=== PATIENT | male | born 1945 | race Caucasian/White ===

== ENCOUNTER 2018-11-11 19:04 | Inpatient (IN) ==
[2018-11-11] MEDS ORDERED: ACETAMINOPHEN 325 MG TAB PO PRN (21:59)
[2018-11-11] MEDS ORDERED: POLYETHYLENE (MIRALAX) 17 GM PACK PO PRN (21:59)
[2018-11-11] MEDS ORDERED: NITROGLYCERIN SL 0.4 MG/TAB TAB SL PRN (21:59)
[2018-11-11] MEDS ORDERED: cloNIDine HCL 0.1 MG TAB PO PRN (21:59)
[2018-11-11] MEDS ORDERED: ONDANSETRON INJ 2 MG/ML 2 ML VIAL IV PRN (21:59)
[2018-11-11] MEDS ORDERED: PHARMACIST DISCHARGE MED REC CONSULT PRN (21:59)
[2018-11-11] MEDS ORDERED: ASPIRIN 81 MG CHEW PO STA (22:46)
[2018-11-11] MEDS ORDERED: NON-FORMULARY MEDICATION (Hydrocodone-Acetaminophen 1 TAB) PO PRN (22:52)
[2018-11-11] MEDS ORDERED: TRAZODONE HCL 50 MG TAB PO ONE (23:30)
[2018-11-11 23:53] LABS: INR 2.2 (0.9-1.1); Prothrombin Time 21.7 Seconds (9.0-12.0)
[2018-11-11] MEDS: METOPROLOL TARTRATE 25 MG TAB PO SCH (23:53)
[2018-11-11] MEDS: PANTOprazole 40 MG TAB PO SCH (23:56)
[2018-11-12] MEDS ORDERED: WARFARIN SOD 5 MG TAB PO ONE (00:30)
--- NOTE | 2018-11-12 01:50 | History and Physical Report ---
DATE OF ADMISSION: 11/11/2018 CHIEF COMPLAINT: Stroke-like symptoms. HISTORY OF PRESENT ILLNESS: This is a 73-year-old male with past medical history significant for CAD status post stent, status post mitral valve replacement mechanical in 1992, on Coumadin, history of hypertension, hyperlipidemia, BPH, GERD, history of arrhythmia, status post ablation in August of this year at [facility], follows with Dr. Slater also history of migraines in the past, used to be on aspirin twice daily, but it was stopped when he was placed on amiodarone recently the amiodarone interacted with his Coumadin, and at that time, aspirin was stopped and he is not taking aspirin anymore and currently amiodarone is also stopped. He is on metoprolol. He lives with his . Yesterday, again he was placed on heart monitor by his information security architect because arrhythmia came back and he gets symptomatic, he feels his heart skipping and palpitations.Today he was walking in the [place] farm, he walked about 1000 feet when he suddenly felt he could not see in the left eye and was walking towards the left side and then he fell down. He thinks he immediately got up, it was around 1:30 p.m. today. He thinks he immediately got up, but he does not know surely how long was on the ground. When he woke up, his vision was back to normal, but he was having some staggering gait and his car was about 100 yards away and he got into car and slowly drove to his house and went to [facility], where stroke alert was called and a CT of the head and CTA of the head and neck were unremarkable. At that time, his exam was benign and [facility] Neurology advised for MRI of the brain, but because of his mechanical mitral valve, MRI was not done and he wanted to come to [facility] because he follows with [facility] neurology and was transferred here. Currently, the patient is resting comfortably. Blood pressure is running high. He says his blood pressure usually , runs on the lower side at home. There are no blurred visions currently. Speech is clear, alert and oriented. He was able to give his full history. He has some mild headache in the occipital region,he attributes it to his nerves. Somewhat hard of hearing. No earaches. He always has chronic runny nose. No sore throat, no dysphagia. Appetite is okay. He is feeling hungry. No cough. No recent fever, chills. No chest pain, no shortness of breath, no nausea, no vomiting, no abdominal pain. He sleeps okay. No night sweats. No recent weight gain/weight loss. Otherwise, he ambulates okay without any issues. No diarrhea, no constipation, no blood in the stools, no black stools. Normal bladder movements. No hematuria or burning micturition, no swelling in the legs, no rash. ALLERGIES: PENICILLINS, ZOCOR. PAST MEDICAL HISTORY: As mentioned above. PAST SURGICAL HISTORY: Cardiac catheterization and stent placement, mitral valve replacement in 1992, cardiac ablation procedure in August of 2018, cataract surgeries, tonsillectomy when he was 29 years old. MEDICATIONS: The patient is on multivitamin daily, vitamin D 1000 international units 2 times daily, calcium 250 mg daily, magnesium 200 mg daily, fish oil 1 capsule daily, probiotic 1 capsule daily, folic acid 800 mcg p.o. daily, Coenzyme Q10 100 mg daily, melatonin 3 mg p.o. at bedtime p.r.n., Tums as needed, Restasis 0.5% 2 drops daily, latanoprost 0.005% one drop each eye, warfarin 5 mg daily, metoprolol 25 mg p.o. b.i.d., atorvastatin 20 mg daily, Flomax 0.4 mg daily, finasteride 5 mg daily, esomeprazole 20 mg b.i.d., sucralfate 1 gram daily, trazodone 75 mg p.o. at bedtime, MiraLax as needed, ranitidine 150 mg daily, hydrocodone 5/325 p.r.n., azithromycin 250 mg prior to dental procedures, valacyclovir 1 g p.r.n. FAMILY HISTORY: Mother and father had heart disorders, hypertension and diabetes in the family. SOCIAL HISTORY: Quit smoking in 1992. No alcohol. Lives with his . REVIEW OF SYMPTOMS: As per HPI. Rest of review of systems is negative. PHYSICAL EXAMINATION: GENERAL: The patient is alert and oriented, not in acute distress. VITAL SIGNS: Currently not available. Blood pressure is running high in the 200s. HEENT: Head is atraumatic. Eyes: Pupils equal, round, and reactive to light. No icterus. No pallor. Extraocular muscles intact. NECK: No JVD, no neck masses, no carotid bruits. CARDIOVASCULAR: S1, S2 heard, regular rate and rhythm. Mechanical murmur heard in mitral area. RESPIRATORY SYSTEM: Normal AP diameter. No accessory muscle use. No wheezing, no crackles. ABDOMEN: Soft, bowel sounds present, nontender. No distention. CENTRAL NERVOUS SYSTEM: Cranial nerves II-XII grossly intact. Power 5/5 in all extremities. Sensations intact, position sense intact. No pronator drift. Coordination of movements normal. Kyqnxn-vo-yqej test normal. Lgoh-sa-ofgl test normal. Babinski is negative. Speech is clear. EXTREMITIES: No edema, no erythema. LABORATORY DATA: Labs done at [facility] shows BUN 13.7, creatinine 0.9, calcium 8.4, total bilirubin 0.7. Sodium 142, potassium 3.8, chloride 107, bicarbonate 26, glucose 93, AST 12, ALT 18, alkaline phosphatase 58. Troponin I less than 0.015. PT 32.2, INR 2.8, WBC 4.5, hemoglobin 14.4, hematocrit 42.3, platelets 139. Urinalysis negative. CT head, no CT evidence of acute intracranial abnormality. 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 Mild generalized volume loss, mild left frontal sinusitis. Chest x-ray shows hyperexpanded lungs without evidence of acute cardiopulmonary disease. EKG shows sinus rhythm with rate of 69, right bundle-branch block, no acute ST changes seen. ASSESSMENT AND PLAN: This is a 73-year-old male who presents with stroke-like symptoms. 1. Stroke-like symptoms, possible transient ischemic attack, transient left vision loss and balance issues. Currently, exam is benign. He was at [facility]. CT of the head and CTA of the head and neck were unremarkable. [facility] Neurology recommended MRI of the head, but currently the patient cannot get MRI because of his mechanical mitral valve. The patient was transferred here for follow up with his neurologist. It was discussed with the neurologist on-call and recommended an echo and aspirin. We will also repeat CT scan of the head in a.m.Neuro checks, Speech evaluation, pt/ot as per stroke protocol. The patient currently seems to be stable. We will closely monitor in the med/surg tele. 2. History of cardiac arrhythmia, do not know exactly kind of arrythmia. He had a cardiac ablation in August of this year at [facility]. He is following with Dr. Slater, information security architect and he was again placed on heart monitor yesterday by his cardiology because he was still having the arrhythmia. He needs follow up with his information security architect.Will monitor tele. 3. Mechanical mitral valve, on Coumadin. His INR is 2.8, the labs done in [place]. We will follow his PT/INR in the a.m. Continue his home Coumadin of 5 mg. Goal is to keep INR 2.5-3.5. 4. History of hypertension, on Lopressor. We will monitor his blood pressure. Currently, blood pressure is running high. We will also place him on clonidine p.r.n. and monitor his blood pressure closely. 5. Hyperlipidemia. Continue statin. Follow fasting lipid profile. 6. BPH. We will continue home meds Flomax and finasteride. 6. Gastroesophageal reflux disease, on Prilosec and sucralfate, and Zantac. 7. 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 We will follow the repeat CAT scan of the head in tomorrow. He has also followed with neurologist for it in the past. 8. History of migraines. The patient says he has some vision issues in and he saw neurologist in 1998 thought to be from his migraines and was prescribed aspirin twice daily, but that was stopped when he was placed on amiodarone recently for his arrhythmia because his Coumadin levels were fluctuating and currently he is not on amiodarone. We will restart on aspirin as per neurology. 9. Deep venous thrombosis prophylaxis, on Coumadin. INR therapeutic. DISPOSITION: Admit to med/surg tele. PT and OT prior to discharge. Social Service to help with discharge planning. Level 1 full code. MTDD
[2018-11-12 07:28] LABS: Basophils # (auto) 0.02 K/uL (0-0.2); Basophils % (auto) 0.4 %; Eosinophils # (auto) 0.27 K/uL (0-0.5); Eosinophils % (auto) 5.8 %; Hematocrit (blood only) 46.5 % (42-52); Immature Granulocytes # (auto) 0.01 K/uL (0.00-0.02); Immature Granulocytes % (auto) 0.2 %; Lymphocytes # (auto) 1.04 K/uL (1.2-3.4); Lymphocytes % (auto) 22.3 %; Mean Corpuscular Hemoglobin 32.9 pg (25-34); Mean Corpuscular Hgb Conc 34.4 g/dL (32-36); Mean Corpuscular Volume 95.5 fL (80-100); Mean Platelet Volume 11.2 fL (7.4-10.4); Monocytes # (auto) 0.68 K/uL (0.11-0.59); Monocytes % (auto) 14.6 %; Neutrophils # (auto) 2.65 K/uL (1.4-6.5); Neutrophils % (auto) 56.7 %; Platelet Count 137 K/uL (130-400); RDW Coefficient of Variation 13.3 % (11.5-14.5); RDW Standard Deviation 46.1 fL (36.4-46.3); Red Blood Count 4.87 M/uL (4.7-6.1); White Blood Count 4.67 K/uL (4.8-10.8)
[2018-11-12 07:39] LABS: INR 2.3 (0.9-1.1)
[2018-11-12] MEDS: PANTOprazole 40 MG TAB PO SCH (07:55)
[2018-11-12 07:58] LABS: BUN Creatinine Ratio 16.7 (10-20); Calcium 8.9 mg/dl (8.5-10.1); Creatinine Clr Calc Pharmacy 79.4 ml/min; Est GFR (African American) 101.9; Est GFR (Non-African American) 87.9; Potassium 3.5 mmol/L (3.5-5.1)
[2018-11-12 08:04] LABS: Estimated Average Glucose 108 mg/dl; Hemoglobin A1C 5.4 % (4.5-5.6)
[2018-11-12 08:21] VITALS: O2SAT 98
[2018-11-12] MEDS: METOPROLOL TARTRATE 25 MG TAB PO SCH (08:31)
[2018-11-12] MEDS ORDERED: CHOLECALCIFEROL 1,000 UNITS TAB PO SCH (09:00)
[2018-11-12] MEDS ORDERED: FOLIC ACID 400 MCG TAB PO SCH (09:00)
[2018-11-12] MEDS ORDERED: LACTOBACILLUS ACIDOPHILUS (FLORANEX) TAB PO SCH (09:00)
[2018-11-12] MEDS ORDERED: CEROVITE ADV FORMULA TAB PO SCH (09:00)
[2018-11-12] MEDS ORDERED: MAGNESIUM OXIDE 400 MG TAB PO SCH (09:00)
[2018-11-12] MEDS ORDERED: SUCRALFATE 1 GM TAB PO SCH (09:00)
[2018-11-12] MEDS ORDERED: ASPIRIN 81 MG ECTAB PO SCH (09:00)
[2018-11-12] MEDS ORDERED: FINASTERIDE 5 MG TAB PO SCH ×2 (09:00→21:00)
[2018-11-12] MEDS ORDERED: ATORVASTATIN 20 MG TAB PO SCH ×2 (09:00→21:00)
[2018-11-12] MEDS ORDERED: POLYETHYLENE (MIRALAX) 17 GM PACK PO PRN (09:00)
[2018-11-12] MEDS ORDERED: TAMSULOSIN HCL 0.4 MG CAP PO SCH ×2 (09:00→21:00)
--- NOTE | 2018-11-12 10:10 | Hospitalist Progress Note ---
Date of Service November 12, 2018 Assessment & Plan (1) Stroke-like symptoms: Admitted with sudden loss of vision in the left eye which became subsequently Did have nonspecific strokelike symptoms involving gait abnormality Symptoms resolved Initial CT of the head did not show any acute findings CTA of the head and neck noted to be unremarkable Echo of the heart-prosthetic mitral valve with no significant stenosis, EF 50 to 55%, grade 1 diastolic dysfunction Baby aspirin has been added to his other medications Repeat CT of the head is pending Await neurology evaluation Likely discharge this afternoon Present on Admission?: Yes (2) History of heart artery stent: History of CAD status post stent-details of which is not known Not having any acute cardiac symptoms EKG remains in sinus rhythm, with right bundle branch block (3) History of radiofrequency ablation procedure for cardiac arrhythmia: History of cardiac arrhythmia status post radiofrequency ablation Has been having palpitations recently Finishing 2-day Holter monitoring His block placer with Dr. sommer in [place] Was advised to keep the appointment with him (4) S/P MVR (mitral valve replacement): No acute findings on echo Continue Coumadin (5) Hypertension: Controlled now (6) Hygroma: Has bilateral's hygroma involving the cerebrum DVT prophylaxis On Coumadin CODE STATUS Full Subjective 11/12 The patient was seen and examined in medical telemetry unit He has multiple significant past medical history including CAD status post stent, ablation, MVR on Coumadin was admitted with sudden monocular visual loss with nonspecific strokelike symptoms He denies any more symptoms suggestive of stroke and/or TIA He denies any other symptoms Review of Systems Review of Systems: All systems reviewed and are unremarkable except as noted below Cardiovascular: no chest pain Neurologic: no paralysis, no tingling, no numbness, no paresthesia, no lack of coordination and no abnormal movements Physical Exam Physical Exam: Lying in bed comfortably Constitutional: well developed and well nourished; no acute distress and not ill appearing Eyes: PERRL, conjunctivae normal, anicteric sclerae ENMT: external ear and nose normal, oropharynx normal Neck: trachea midline, no thyromegaly Respiratory: normal respiratory effort Auscultation: lungs clear to auscultation bilaterally Cardiovascular: Rate/Rhythm: regular rate and regular rhythm Heart Sounds: + click and + murmur (2/6 ejection systolic murmur over precordium) Gastrointestinal (Abdomen): Inspection/Auscultation: abdomen normal to inspection and normal bowel sounds Musculoskeletal: No acute arthritis in any of the joints Neurologic: moves all extremities; no focal motor deficits Denies any symptoms suggestive of TIA and/or stroke. Results & Data Vital Signs (Past 12 Hours) Vital Signs Temp Pulse Pulse Resp BP Pulse Ox 11/12/18 08:19 36.3 C L 61 18 165/75 H 98 11/12/18 07:39 56 L 11/12/18 04:18 36.5 C 59 L 18 145/72 H 99 11/11/18 23:29 36.8 C 73 18 165/75 H 99 11/11/18 22:10 73 Laboratory Results Short CBC 11/12/18 Range/Units 06:28 WBC 4.67 L (4.8-10.8) K/uL Hgb 16.0 (14.0-18.0) g/dL Hct 46.5 (42-52) % Plt Count 137 (130-400) K/uL BMP 11/12/18 06:28 Sodium 144 Potassium 3.5 Chloride 110 H Carbon Dioxide 27 BUN 14 Creatinine 0.83 Glucose 83 Calcium 8.9 Medications Administered Current Inpatient Medications Acetaminophen (Tylenol) 650 mg PO Q4H PRN PRN Reason: Pain or Fever Stop: 12/11/18 21:58 Aspirin (Ecotrin Ectab) 81 mg PO QAM [facility] Stop: 12/12/18 08:59 Last Admin: 11/12/18 08:31 Dose: 81 mg Documented by: Atorvastatin Calcium (Lipitor) 20 mg PO HS [facility] Stop: 12/12/18 08:59 Clonidine HCl (Catapres) 0.1 mg PO Q4H PRN PRN Reason: Hypertension Stop: 12/11/18 21:58 Finasteride (Proscar) 5 mg PO HS [facility] Stop: 12/12/18 08:59 Folic Acid (Folvite) 800 mcg PO DAILY [facility] Stop: 12/12/18 08:59 Last Admin: 11/12/18 08:31 Dose: 800 mcg Documented by: Lactobacillus Acidophilus (Floranex) 4 tab PO DAILY [facility] Stop: 12/12/18 08:59 Last Admin: 11/12/18 08:32 Dose: 4 tab Documented by: Latanoprost (Xalatan Oph) 1 drops OPB HS [facility] Stop: 12/12/18 20:59 Magnesium Oxide (Mag-Ox) 200 mg PO DAILY [facility] Stop: 12/12/18 08:59 Last Admin: 11/12/18 08:32 Dose: 200 mg Documented by: Metoprolol Tartrate (Lopressor) 25 mg PO BID [facility] Stop: 12/11/18 23:29 Last Admin: 11/12/18 08:31 Dose: 25 mg Documented by: Miscellaneous (Order Awaiting Action) 1 ea N/A QS [facility] Stop: 12/12/18 00:00 Last Admin: 11/12/18 08:28 Dose: Not Given Documented by: Miscellaneous Information (Pharmacist Discharge Med Rec Consult) 1 ea N/A UD PRN PRN Reason: Consult Stop: 12/11/18 21:58 Multivitamins/Minerals (Multivitamin W/ Minerals Tab) 1 tab PO DAILY [facility] Stop: 12/12/18 08:59 Last Admin: 11/12/18 08:32 Dose: 1 tab Documented by: Nitroglycerin (Nitrostat) 0.4 mg SL UD PRN PRN Reason: Chest Pain Stop: 12/11/18 21:58 Ondansetron HCl (Zofran) 4 mg IV Q6H PRN PRN Reason: Nausea Stop: 12/11/18 21:58 Pantoprazole Sodium (Protonix) 40 mg PO BID [facility] Stop: 12/11/18 23:29 Last Admin: 11/12/18 07:55 Dose: 40 mg Documented by: Polyethylene Glycol (Miralax Powder Packet) 17 gm PO DAILY PRN PRN Reason: Constipation Stop: 12/11/18 21:58 Polyethylene Glycol (Miralax Powder Packet) 17 gm PO DAILY PRN PRN Reason: CONSTIPATION Stop: 12/12/18 08:59 Ranitidine HCl (Zantac) 150 mg PO DAILY [facility] Stop: 12/12/18 08:59 Last Admin: 11/12/18 08:31 Dose: 150 mg Documented by: Sucralfate (Carafate Tab) 1 gm PO DAILY [facility] Stop: 12/12/18 08:59 Last Admin: 11/12/18 08:29 Dose: Not Given Documented by: Tamsulosin HCl (Flomax) 0.4 mg PO [facility] Stop: 12/12/18 08:59 Trazodone HCl (Desyrel) 75 mg PO [facility] Stop: 12/12/18 20:59 Vitamin D (Vitamin D3) 1,000 units PO DAILY [facility] Stop: 12/12/18 08:59 Last Admin: 11/12/18 08:32 Dose: 1,000 units Documented by: Warfarin Sodium (Coumadin) 5 mg PO DAILY@1600 [facility] Stop: 12/12/18 15:59
--- NOTE | 2018-11-12 10:31 | Communication Note ---
Date of Service: November 12, 2018 I have seen and examined Mr. Goodrich today, have discussed his case with Dr. Barrios, have reviewed the history as recorded and the outpatient notes from Dr. Jamal West saw him about a year ago for a nonspecific gait disturbance and notes from Dr. Deanna Crane who saw him in the remote past for acephalic migraines characterized by left visual field with positive phenomenon occurring without headache and treated with aspirin with good results up until recently when amiodarone was added to control his atrial fibrillation and his chronic Coumadin therapy became erratic to the point that aspirin was felt to be contraindicated Amiodarone has been discontinued Coumadin has been continued and aspirin unfortunately is still been held despite the fact he continues to have paroxysmal atrial fibrillation despite an attempted ablation and has a chronic heart valve of mechanical type in place since the Yesterday he had an event that sounds very much like left amaurosis fugax after which he began to stagger and fell probably did not lose consciousness but afterwards at a time when vision had returned, was still little off balance but all of this is cleared and a CT scan done at [place] including a CT angiographic study have been normal allowing for some chronic bilateral subdural hygromas and clinically he is back to baseline with the only exception being a slight monocular visual blurring of uncertain cause without any central scotoma that I can demonstrate and without any clear findings I can see on ocular fundus exam which is limited At this point this repeat CT scan is pending as he cannot have an MRI due to the mechanical heart valve and if this is normal he can be discharged on a single baby aspirin a day plus his Coumadin, see his carpet jack for detailed examination of the left retina and can follow-up with Dr. West in [place] in about 4 to 6 weeks for the standard post hospitalization neurology visit Full consultation has been dictated but will not be typed until later today Brian Montaño MD
--- NOTE | 2018-11-12 10:59 | CT Scan Report ---
CT head/brain wo con CLINICAL HISTORY: Stroke/transient ischemic attack COMPARISON STUDY: No previous studies for comparison. TECHNIQUE: Axial CT of the brain is performed from the vertex to the skull base. IV contrast was not administered for this examination. A dose lowering technique was utilized adhering to the principles of ALARA. CT DOSE: 614.27 mGy.cm FINDINGS: No intra or extra-axial mass lesions are visualized. There is no CT evidence of acute cortical infarc tion. There is no evidence of midline shift. There is no acute hemorrhage. No calvarial fractures ar e visualized. There is mildly prominent extra-axial space, dilated subarachnoid space versus tiny chr onic subdural hygromas. There are patchy white matter hypodensities likely on a small vessel basis. There is no evidence of pathologic ventricular dilatation. There is no evidence of acute sinusitis. There is a small left maxillary sinus retention cyst. IMPRESSION: No acute intracranial findings Electronically signed by: Kalyan Marcano M.D. 11/12/2018 10:56 AM
[2018-11-12] MEDS ORDERED: STROKE PATIENT DISCHARGE STA (11:18)
[2018-11-12 11:30] VITALS: BP 167/85; PULSE 68; TEMP 97.5
--- NOTE | 2018-11-12 11:50 | Consultation Report ---
DATE OF CONSULTATION: 11/12/2018 CONSULTATION FOR: Dr. Barrios. HISTORY OF PRESENT ILLNESS: Mustapha is 73 years old, is right handed and is regularly a patient of Dr. Honey Peterson of the [place] area and was formerly seen by Dr. Deanna Crane of neurology for acephalic migraines in the remote past and Dr. Jamal West of neurology for gait disturbance, last visit being nearly a year ago. He does have underlying coronary artery disease post-stenting. He has had mitral valve replacement of mechanical type in 1992, on chronic Coumadin. He has a history of hypertension, dyslipidemia, benign prostatic hypertrophy, GERD, paroxysmal atrial fibrillation post-ablation with recurrent atrial fibrillation and follows with Dr. Slater of [place]. He at one point was on 2 baby aspirins a day and Coumadin and was doing well, but then amiodarone was added to his regimen, the protime became erratic and aspirin was stopped, then amiodarone and only Coumadin was continued, and he has not been on aspirin now for some time. Yesterday while walking on his [place]'s [place], he suddenly lost vision in the left eye and his gait became unstable to the point that he fell. He does not think he lost consciousness, he thinks he got up immediately, but is unclear on this, and when he did, he was a little off balance, although the vision according to him had cleared. He was able to walk about 1000 yards in a somewhat dystaxic fashion, drive his car home and then was taken to the [place] [facility], assessed, stroke neurology group from [facility] was consulted. They recommended an MRI, but this could not be done and recommended he be placed on aspirin. He apparently was in atrial fibrillation there, but now appears to be in sinus rhythm according to my examination, and according to him, this is not infrequent lately with paroxysmal atrial fibrillation being fairly standard. Since admission, he has been fine. A CT scan there showed what has been interpreted as some subdural hygromas and a CAT scan done a year ago was reviewed by me this morning through our [employer] computer and there are some low density areas in the bifrontal area that could be hygromas or simply volume loss. The issue is academic. There is no evidence for infarction and a CTA scan is said to have been normal, although I do not see the actual images on our chart.The reports however indicate no significant extracranial or intracranial stenoses He has been absolutely fine ever since, although he does have a slight suboccipital headache, but never has headaches before even with his migraines. PAST SURGICAL HISTORY: Reveals cardiac catheterization with stent, mitral valve replacement, cardiac ablation procedure in this year, cataract surgeries, tonsillectomy when he was 21. PAST MEDICAL HISTORY: As noted above. MEDICATIONS: Include multivitamins, vitamin D, calcium, magnesium, Coenzyme Q10, melatonin, eye drops for glaucoma, Coumadin 5 mg daily, metoprolol, esomeprazole, Carafate, trazodone, MiraLax as needed, ranitidine, hydrocodone, azithromycin for dental procedures, valacyclovir as needed and now a baby aspirin a day which has just been started. FAMILY HISTORY: Reveals mother and father with heart disorders, hypertension, diabetes. 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 REVIEW OF SYSTEMS: Reveals no recent health issues other than those surrounding his cardiac ablation and recurrent paroxysmal atrial fibrillation for which he has just completed an outpatient monitoring procedure. Otherwise, there are no new issues referable to head, eyes, ears, nose and throat other than the vague monocular visual blurring that has been present since yesterday and was not there previously and the suboccipital headache. His cardiovascular review of systems is covered above. He has no pulmonary problems, gastrointestinal issues other than GERD, no genitourinary problems other than the prostatic hypertrophy and no significant musculoskeletal, dermatologic, hematologic, or endocrinologic issues are reported. PHYSICAL EXAMINATION: VITAL SIGNS: On exam, blood pressure was running in the high 200s, pulse was 75 and irregular, respirations 16. He was afebrile. NEUROLOGIC: He is awake, alert, oriented in 3 spheres. He has complaints of monocular visual blurring, yet acuity testing from a distance of about 20 feet appears to be at least 20/25 to 20/30 without any reported scotoma and my attempts at looking the ocular fundi were less than successful. I saw no relative afferent pupillary defect. Eye movements were full. Visual rodriguez were full. Facial motility and strength was normal. Facial sensation was normal. Gait, station and coordination was limited to bedside testing, but there is no cerebellar dysmetria, tremor, tics, choreiform activity, deficits on heel to smith or [id number]-sz-[id number] testing and facility of rapid repetitive motions was quite normal. Reflexes are all 1+ symmetrical. Toes are downgoing. No Clay signs are seen. Muscle strength testing is normal and sensation is quite normal to vibration, light touch and proprioception and there is no sensory neglect. Mentally, he is awake, alert, oriented in 3 spheres and really has good recall of the events with the exception that he is not certain that he was totally awake after he hit the ground following the fall, but really thinks that he was immediately back to baseline. There were no witnesses, so this cannot be corroborated, but there was no occult trauma that he was unaware of. IMPRESSION AND PLAN: At this point, I think this was an episode of amaurosis fugax likely due to embolization in the central retinal artery distribution and I am suspicious that this was related to atrial fibrillation. His coagulation studies are therapeutic. His laboratories are fine and I certainly agree with adding aspirin in this setting. I do not think this was a migraine. I really cannot be certain this was not a right occipital stroke, but the visual field examination is normal and he really describes a monocular visual disturbance, so I think this is anterior circulation on the left. The issue is academic. He should be cleared for discharge if he has no other symptoms by the end of the day and a CAT scan is going to be done just to compare with the prior one, and hopefully, we will find no evidence for a new event, no hemorrhage and he can be discharged to home with followup with Dr. West and with instructions to be seen by his crew team member to check for a possible central retinal artery embolism, Hollenhorst plaque, etc. I have discussed his case with Dr. Barrios today, and he and I are in agreement about the discharge plans. JOHANNY
[2018-11-12] MEDS ORDERED: WARFARIN SOD 5 MG TAB PO SCH (16:00)
[2018-11-12] MEDS ORDERED: LATANOPROST 0.005% OP SOLN 2.5 ML BTL OPB SCH (21:00)
[2018-11-12] MEDS ORDERED: TRAZODONE HCL 50 MG TAB PO SCH (21:00)
--- NOTE | 2018-11-13 08:32 | Discharge Summary ---
Date of Service November 13, 2018 Admission HPI Per Admitting Provider DICTATED BY: Yony Root MD DATE OF ADMISSION: 11/11/2018 CHIEF COMPLAINT: Stroke-like symptoms. HISTORY OF PRESENT ILLNESS: This is a 73-year-old male with past medical history significant for CAD status post stent, status post mitral valve replacement mechanical in 1992, on Coumadin, history of hypertension, hyperlipidemia, BPH, GERD, history of arrhythmia, status post ablation in August of this year at [place], follows with Dr. Slater also history of migraines in the past, used to be on aspirin twice daily, but it was stopped when he was placed on amiodarone recently the amiodarone interacted with his Coumadin, and at that time, aspirin was stopped and he is not taking aspirin anymore and currently amiodarone is also stopped. He is on metoprolol. He lives with his . Yesterday, again he was placed on heart monitor by his locket maker because arrhythmia came back and he gets symptomatic, he feels his heart skipping and palpitations.Today he was walking in the father's farm, he walked about 1000 feet when he suddenly felt he could not see in the left eye and was walking towards the left side and then he fell down. He thinks he immediately got up, it was around 1:30 p.m. today. He thinks he immediately got up, but he does not know surely how long was on the ground. When he woke up, his vision was back to normal, but he was having some staggering gait and his car was about 100 yards away and he got into car and slowly drove to his house and went to [place] [facility], where stroke alert was called and a CT of the head and CTA of the head and neck were unremarkable. At that time, his exam was benign and [facility] Neurology advised for MRI of the brain, but because of his mechanical mitral valve, MRI was not done and he wanted to come to [facility] because he follows with [facility] neurology and was transferred here. Currently, the patient is resting comfortably. Blood pressure is running high. He says his blood pressure usually , runs on the lower side at home. There are no blurred visions currently. Speech is clear, alert and oriented. He was able to give his full history. He has some mild headache in the occipital region,he attributes it to his nerves. Somewhat hard of hearing. No earaches. He always has chronic runny nose. No sore throat, no dysphagia. Appetite is okay. He is feeling hungry. No cough. No recent fever, chills. No chest pain, no shortness of breath, no nausea, no vomiting, no abdominal pain. He sleeps okay. No night sweats. No recent weight gain/weight loss. Otherwise, he ambulates okay without any issues. No diarrhea, no constipation, no blood in the stools, no black stools. Normal bladder movements. No hematuria or burning micturition, no swelling in the legs, no rash. Admission Exam Per Admitting Provider GENERAL: The patient is alert and oriented, not in acute distress. VITAL SIGNS: Currently not available. Blood pressure is running high in the 200s. HEENT: Head is atraumatic. Eyes: Pupils equal, round, and reactive to light. No icterus. No pallor. Extraocular muscles intact. NECK: No JVD, no neck masses, no carotid bruits. CARDIOVASCULAR: S1, S2 heard, regular rate and rhythm. Mechanical murmur heard in mitral area. RESPIRATORY SYSTEM: Normal AP diameter. No accessory muscle use. No wheezing, no crackles. ABDOMEN: Soft, bowel sounds present, nontender. No distention. CENTRAL NERVOUS SYSTEM: Cranial nerves II-XII grossly intact. Power 5/5 in all extremities. Sensations intact, position sense intact. No pronator drift. Coordination of movements normal. [id number]-mv-[id number] test normal. Svck-ku-eawb test normal. Babinski is negative. Speech is clear. EXTREMITIES: No edema, no erythema. Principal Diagnosis TIA, left monocular visual loss-resolved, CAD, MVR Discharge Exam Constitutional well developed and well nourished; no acute distress and not ill appearing Eyes PERRL, conjunctivae normal, anicteric sclerae ENMT external ear and nose normal, oropharynx normal Neck trachea midline, no thyromegaly Respiratory normal respiratory effort Auscultation: lungs clear to auscultation bilaterally Cardiovascular Rate/Rhythm: regular rate and regular rhythm Heart Sounds: + click and + murmur (2/6 ejection systolic murmur over precordium) Gastrointestinal (Abdomen) Inspection/Auscultation: abdomen normal to inspection and normal bowel sounds Neurologic moves all extremities; no focal motor deficits Discharge Data Allergies Allergy/AdvReac Type Severity Reaction Status Date / Time Penicillins Allergy Unknown Unknown Verified 11/11/18 22:04 Consultations 11/11/18 21:59 Consult Case Management - Discharge Planning Routine 11/12/18 08:00 Consult Neurology Routine Ordered Studies 11/12/18 08:00 CT head/brain wo con Routine Hospital Course (1) Stroke-like symptoms: Admitted with sudden loss of vision in the left eye which became subsequently Did have nonspecific strokelike symptoms involving gait abnormality Symptoms resolved Initial CT of the head did not show any acute findings CTA of the head and neck noted to be unremarkable Echo of the heart-prosthetic mitral valve with no significant stenosis, EF 50 to 55%, grade 1 diastolic dysfunction Baby aspirin has been added to his other medications Repeat CT of the head is pending Await neurology evaluation Likely discharge this afternoon (2) History of heart artery stent: History of CAD status post stent-details of which is not known Not having any acute cardiac symptoms EKG remains in sinus rhythm, with right bundle branch block (3) History of radiofrequency ablation procedure for cardiac arrhythmia: History of cardiac arrhythmia status post radiofrequency ablation Has been having palpitations recently Finishing 2-day Holter monitoring His locket maker with Dr. sommer in [place] Was advised to keep the appointment with him (4) S/P MVR (mitral valve replacement): No acute findings on echo Continue Coumadin (5) Hypertension: Controlled now (6) Hygroma: Has bilateral's hygroma involving the cerebrum DVT prophylaxis On Coumadin CODE STATUS Full Total Time Total Time Spent Total Time Spent (In Minutes): 35 minutes Total Time Includes: Examination of the Patient, Discharge Planning, Medication Reconciliation and Communication With Other Providers Discharge Plan Discharge Items Patient Disposition: Home - Self-Care Reason For Visit: TIA Discharge Diagnosis: TIA, left monocular visual loss-resolved, CAD, MVR Condition on Discharge: Good Activity: Resume your previous activity Non-emergency contact: Primary Care Provider Call non-emergency contact if: you have any medication questions and your symptoms worsen Follow-up/Referrals: Prince Peterson [Primary Care Provider] - (Please make an appointment with Dr. Billings in 1 week. Keep regular appointment with the locket maker. Keep regular appointment with coagulation clinic to maintain your INR between 2-3 We will give you a call with an appointment with Dr. Fraga-the neurologist in [facility]) Diet: Heart Healthy Addtl Attending Provider Instructions: Please take precaution to avoid fall Your new medications will be baby aspirin to be taken continue Please see your human resources team member/compensation analyst as soon as possible Pending Studies at Discharge: No Stand-Alone Forms: My [facility] Medications and DC Order Prescriptions: New aspirin 81 mg tablet,delayed release (DR/EC) 162 mg PO DAILY Qty: 60 RF: 0 Continued trazodone 50 mg Tablet 75 mg PO HS RF: 0 tamsulosin [Flomax] 0.4 mg Capsule 0.4 mg PO DAILY RF: 0 warfarin 5 mg Tablet 5 mg PO DAILY RF: 0 magnesium 200 mg Tablet 200 mg PO DAILY RF: 0 omega 2-rjs-nmd-fish oil [Fish Oil] 1,000 mg (120 mg-180 mg) Capsule 1 cap PO DAILY RF: 0 Probiotic 3 billion cell Capsule 3,000 mmu cells PO DAILY RF: 0 Lopressor 25 mg 25 mg PO BID RF: 0 Miralax 1 packet 1 packet PO DAILY PRN (Reason: Constipation) RF: 0 Restasis 2 drop 1 dose OPB DAILY RF: 0 Vitamin D3 1,000 units 1,000 units PO DAILY RF: 0 atorvastatin 20 mg 20 mg PO DAILY RF: 0 esomeprazole sodium 20 mg 20 mg PO BID RF: 0 finasteride 5 mg 5 mg PO DAILY RF: 0 folic acid 800 mcg 800 mcg PO DAILY RF: 0 hydrocodone-acetaminophen 5 mg 1 tab PO DAILY PRN (Reason: Pain) RF: 0 latanoprost 1 drop 1 dose OPB DAILY RF: 0 melatonin 3 mg 3 mg PO HS RF: 0 multivitamin with minerals 1 tab 1 tab PO DAILY RF: 0 ranitidine HCl 150 mg 150 mg PO DAILY RF: 0 sucralfate 1,000 mg 1,000 mg PO DAILY RF: 0 Discharge Orders: Discharge Order (Routine); Ordered 11/12/18 Ordered By: Aries Barrios Admission Data Admit Date/Time: 11/11/18 21:52 Attending Provider: Aries Barrios Admit Provider: Yony Root Primary Care Provider: Prince Peterson Other Providers: Brian Montaño Other Interventions: Discharge Summary Assessment (RN) Last Done: 11/12/18 13:19 DC Date/Time DO NOT enter until pt leaves facility: 11/12/18 13:52
== END 2018-11-12 13:52 | disposition home or self-care (01) | DRG 123 ==
LOC: 2N